=== PATIENT | female | born 1950 | race Caucasian/White ===

== ENCOUNTER 2020-10-01 09:34 | Emergency (ER) | payer MEDICARE ==
[~2020-10-01] VITALS: Ht 144.8 cm; Wt 54.9 kg
== END 2020-10-01 10:43 | disposition home or self-care (01) ==
LOC: ER 10:04
DX: H10.9 Unspecified conjunctivitis (principal); E11.9 Type 2 diabetes mellitus without complications; J44.9 Chronic obstructive pulmonary disease, unspecified; E78.5 Hyperlipidemia, unspecified
CPT/HCPCS: 99282